=== PATIENT | female | born 1960 | race Caucasian/White ===

== ENCOUNTER → 2020-01-20 | Outpatient (CLI) | payer OTHER ==
[2020-01-22 16:20] LABS: CORONAVIRUS (COVID19) CSH-NRL Negative (Negative)
== END | disposition home or self-care (01) ==
LOC: LAB SHORT 18:41 → LAB 18:41
PROVIDERS: Family Medicine
DX: Z20.828 Contact with and (suspected) exposure to other viral communicable diseases (principal)
CPT/HCPCS: U0003

== ENCOUNTER → 2021-07-29 | Outpatient (CLI) | payer OTHER ==
[2021-07-30 16:07] LABS: HPV 16 Negative (Negative); HPV 18 Negative (Negative); HPV OTHER HR TYPES Negative (Negative)
== END | disposition home or self-care (01) ==
LOC: LAB 11:41 → LAB SHORT 11:41
PROVIDERS: Obstetrics & Gynecology
DX: Z01.419 Encounter for gynecological examination (general) (routine) without abnormal findings (principal)
CPT/HCPCS: 87624; G0123

== ENCOUNTER → 2022-08-30 | Outpatient (CLI) | payer OTHER | LOC: LAB SHORT 08:20 → PLD 08:20 | DX: D48.5 Neoplasm of uncertain behavior of skin (principal) | CPT/HCPCS: 88305 ==

== ENCOUNTER 2023-11-02 12:57 | Day surgery (SDC) | payer OTHER ==
[~2023-11-02] VITALS: Ht 170.2 cm; Wt 67.3 kg
[~2023-11-02 12:57] MED LIST: Lactated Ringer's 1,000 ML IV ONE; propofoL 50 ML IV ONE
[2023-11-02] MEDS ORDERED: ESTRADIOL (13:09)
[2023-11-02] MEDS ORDERED: Lactated Ringer's 1,000 ML IV ONE (13:59)
[2023-11-02] MEDS ORDERED: Methylene Blue 1% 100 MG/10 ML VIAL ONE (14:58)
--- NOTE | 2023-11-02 15:18 | NUR ---
11/02/23 1518 Oskar Rivera INJECTED 10ML NS FOR POLYPECTOMY.
[2023-11-02 15:42] VITALS: BP 126/93
== END 2023-11-02 15:45 | disposition home or self-care (01) ==
LOC: ORSCSDS 12:57
PROVIDERS: Surgery
PROC: 0DBH8ZX Excision of Cecum, Via Natural or Artificial Opening Endoscopic, Diagnostic (ICD-10-PCS; principal; 2023-11-02 14:15)
DX: Z12.11 Encounter for screening for malignant neoplasm of colon (principal); K63.5 Polyp of colon; K64.1 Second degree hemorrhoids; Z79.899 Other long term (current) drug therapy
CPT/HCPCS: 88305; J2704; J7120; Q9968